=== PATIENT | male | born 2005 | race Caucasian/White ===

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

== ENCOUNTER → 2023-02-14 | Outpatient (CLI) | payer BC, MEDICAID, OTHER ==
[~2023-02-14] MED LIST changes: +FLUT50SP17; -FLUTISP
[2023-02-14 17:34] LABS: BASO # 0.1 10^3/uL (0.0-0.2); BASO % 1.3 % (0.0-1.0); EOS # 0.5 10^3/uL (0.0-0.5); EOS % 6.3 % (0.0-3.0); HEMATOCRIT 46.1 % (42.0-52.0); HEMOGLOBIN 15.4 g/dl (13.5-17.5); LYMPH # 2.8 10^3/uL (1.5-5.0); LYMPH % 37.6 % (24.0-44.0); MEAN CORPUSCULAR HEMOGLOBIN 30.1 pg (27.0-33.0); MEAN CORPUSCULAR HGB CONC 33.4 g/dl (32.0-36.5); MONO # 0.6 10^3/uL (0.0-0.8); MONO % 8.6 % (2.0-8.0); NEUTROPHILS # 3.4 10^3/uL (1.5-8.5); NEUTROPHILS % 45.1 % (36.0-66.0); PLATELET COUNT, AUTOMATED 478 10^3/uL (150-450); RED BLOOD COUNT 5.12 10^6/uL (4.30-6.10); WHITE BLOOD COUNT 7.5 10^3/uL (4.0-10.0)
[2023-02-14 17:54] LABS: LIPASE 28 U/L (12-53)
[2023-02-14 17:56] LABS: ALBUMIN 3.6 G/DL (3.2-5.2); ALKALINE PHOSPHATASE 85 U/L (46-116); ALT/SGPT 30 U/L (7.0-40); AST/SGOT 24 U/L (<34); BILIRUBIN,TOTAL 0.4 MG/DL (0.3-1.2); BLOOD UREA NITROGEN 10 MG/DL (9-23); CALCIUM LEVEL 9.1 MG/DL (8.5-10.1); CARBON DIOXIDE LEVEL 29 MMOL/L (20-31); CHLORIDE LEVEL 108 MMOL/L (98-107); CREATININE FOR GFR 1.03 MG/DL (0.70-1.30); GLUCOSE, FASTING 78 MG/DL (60-100); POTASSIUM SERUM 4.7 MMOL/L (3.5-5.1); SODIUM LEVEL 144 MMOL/L (136-145); TOTAL PROTEIN 6.7 G/DL (5.7-8.2)
== END ==
LOC: M WUC 11:06
PROVIDERS: ATTEND Student in an Organized Health Care Education/Training Program
DX: R63.4 Abnormal weight loss (principal)

== ENCOUNTER → 2024-05-08 | Outpatient (CLI) | payer BC, MEDICAID ==
[~2024-05-08] MED LIST changes: -FLUT11IN; +FLUT12AE6; -FLUT50SP17; +FLUTISP
== END ==
LOC: M WUC 13:35
PROVIDERS: ATTEND Nurse Practitioner Family
DX: M25.571 Pain in right ankle and joints of right foot (principal)

== ENCOUNTER → 2024-10-29 | Outpatient (REF) | payer OTHER, MEDICAID ==
[2024-10-29 15:08] LABS: Trichomonas vaginalis (AMP) NOT DETECTED (NEGATIVE)
[2024-10-29 15:31] LABS: GC DNA AMPLIFICATION NEGATIVE (NEGATIVE)
[2024-10-29 18:43] LABS: ALBUMIN 4.4 G/DL (3.2-5.2); ALKALINE PHOSPHATASE 80 U/L (40-129); ALT/SGPT 38 U/L (7.0-40); AST/SGOT 23 U/L (<34); BILIRUBIN,TOTAL 0.9 MG/DL (0.3-1.2); BLOOD UREA NITROGEN 16 MG/DL (9-23); CALCIUM LEVEL 10.1 MG/DL (8.5-10.1); CARBON DIOXIDE LEVEL 28 MMOL/L (20-31); CHLORIDE LEVEL 105 MMOL/L (98-107); CHOLESTEROL LEVEL 169 MG/DL (<200); CHOLESTEROL RISK RATIO 4.23 (<5); CREATININE FOR GFR 1.09 MG/DL (0.70-1.30); GLOMERULAR FILTRATION RATE > 60.0 (>60); GLUCOSE, FASTING 88 MG/DL (60-100); HDL CHOLESTEROL 39.9 MG/DL (>40); LDL CHOLESTEROL 96.1 MG/DL (<100); NON-HDL-C 129.1 MG/DL; POTASSIUM SERUM 4.8 MMOL/L (3.5-5.1); SODIUM LEVEL 141 MMOL/L (136-145); TRIGLYCERIDES LEVEL 165 MG/DL (<150)
[2024-10-29 18:44] LABS: THYROID STIMULATING HORMONE 2.953 uIU/ML (0.55-4.78); TOTAL 25(OH) VITAMIN D 12.8 NG/ML (20.0-100.0)
[2024-10-29 19:10] LABS: HEMOGLOBIN A1c 4.8 % (4.0-6.0)
== END ==
LOC: M LAB REF 12:29
PROVIDERS: ATTEND Physician Assistant
DX: Z11.9 Encounter for screening for infectious and parasitic diseases, unspecified (principal)